=== PATIENT | female | born 1990 | race Caucasian/White ===

== ENCOUNTER 2019-10-12 17:01 | Emergency (ER) | payer MEDICAID ==
[~2019-10-12] VITALS: Ht 167.6 cm; Wt 52.0 kg
[2019-10-12] MEDS ORDERED: TETANUS AND DIPHTHERIA TOX/PF 0.5 ML VIAL. VAX IM ONE (17:45)
[2019-10-12] MEDS ORDERED: DIPH,PERTUSS(ACELL),TET VAC/PF 0.5 ML SYRINGE. VAX IM ONE (17:51)
--- NOTE | 2019-10-12 17:59 | PHYS DOC ---
Adult General Chief Complaint Chief Complaint: SUICIDAL IDEATION HPI HPI Patient is a 29 year old left handed female with history of previous mental hospitalization for suicidal ideation who presents via EMS with complaining of suicidal ideation. Patient states she had a miscarriage with D&C yesterday and was upset about the significant other and cut her right wrist with suicidal ideation. Patient denies homicidal ideation and hallucination. Patient was hospitalized in mental hospital 1 month ago with the same problem. (AVRIL MARTINEZ MD) Review of Systems Review of Systems Constitutional: Denies fever or chills [] Eyes: Denies change in visual acuity, redness, or eye pain [] HENT: Denies nasal congestion or sore throat [] Respiratory: Denies cough or shortness of breath [] Cardiovascular: No additional information not addressed in HPI [] GI: Denies abdominal pain, nausea, vomiting, bloody stools or diarrhea [] : Denies dysuria or hematuria [] Musculoskeletal: Denies back pain or joint pain [] Integument: Denies rash or skin lesions [] Neurologic: Denies headache, focal weakness or sensory changes [] Endocrine: Denies polyuria or polydipsia [] All other systems were reviewed and found to be within normal limits, except as documented in this note. (AVRIL MARTINEZ MD) Current Medications Current Medications Current Medications Medications (Trade) Dose Ordered Sig/Emily Start Time Stop Time Status Last Admin Dose Admin Tetanus/ Diphtheria Toxoids Adsorbed (Tenivac Vial) 0.5 ml ONCE ONCE 10/12/19 17:45 10/12/19 17:46 UNV (AVRIL MARTINEZ MD) Physical Exam Physical Exam Constitutional: Well developed, well nourished, mild distress, non-toxic appearance. [] HENT: Normocephalic, atraumatic. Eyes: PERRLA, EOMI, conjunctiva normal, no discharge. [] Neck: Normal range of motion, no tenderness, supple, no stridor. [] Cardiovascular:Heart rate regular rhythm, no murmur [] Lungs & Thorax: Bilateral breath sounds clear to auscultation [] Abdomen: Bowel sounds normal, soft, no tenderness, no masses, no pulsatile mass es. [] Skin: Warm, dry, no erythema, no rash. [] depressed Back: No tenderness, no CVA tenderness. [] Extremities: Several transverse laceration of right forearm in volar side and some of them with exposed fat tissue, no tenderness, no cyanosis, no clubbing, ROM intact, no edema. [] Neurologic: Alert and oriented X 3, no focal deficits noted. [] Psychologic: Affect normal, judgement normal, mood suicidal. (AVRIL MARTINEZ MD) EKG EKG [] (AVRIL MARTINEZ MD) Radiology/Procedures Radiology/Procedures [] (AVRIL MARTINEZ MD) Course & Med Decision Making Course & Med Decision Making Pertinent Labs are pending. Evaluation of patient in ER showed 29-year-old female patient with suicidal ideation and several right forearm laceration to some of the needs repair. Labs is pending.Sign out given to at 1800 for further evaluation and final disposition. Discussed current findings and plan with patient and family, who acknowledge understanding and agreement. (AVRIL MARTINEZ MD) Course & Med Decision Making The patient's psychiatric screener has determined that the patient can be discharged with a safety plan. She will have her stitches out in 7 days. She is stable for discharge at this time. (VIPIN GUY DO) Dragon Disclaimer Dragon Disclaimer This electronic medical record was generated, in whole or in part, using a voice recognition dictation system. (AVRIL MARTINEZ MD) Laceration Repair Lac Repair Indication: 3 linear lacerations each 3 cm in length on the left forearm that wo uld benefit from loose suturing. Patient has several other self-inflicted cuts that do not need suture. Procedure: I obtained verbal consent from the patient for suture repair of 3 of her wounds. Wounds were cleaned with saline under pressure. No foreign bodies were found. I anesthetized the wounds with 4 mL of 1% lidocaine with epinephrine. Good anesthesia was achieved, I placed 2 3-0 sutures in an interrupted fashion and each of the 3 wounds. This provided loose approximation for better healing. Bleeding was controlled. Clean dry dressing was applied. Total repaired wound length: 3 lacerations each 3 cm in length Other Items: None The patient tolerated the procedure well Complications: 3 lacerations (VIPIN GUY DO) Departure Departure: Impression: Primary Impression: Suicidal ideation Additional Impressions: Self-mutilation Forearm laceration Disposition: 01 HOME, SELF-CARE Condition: STABLE Patient Instructions: Laceration Care, Adult, [id number], Suicidal Feelings, How to Help Yourself Problem Qualifiers Additional Impressions: Forearm laceration Encounter type: sequela Laterality: right Qualified Codes: S51.811S - Laceration without foreign body of right forearm, sequela AVRIL MARTINEZ MD Oct 12, 2019 17:59 VIPIN GUY DO Oct 12, 2019 21:11
[2019-10-12 18:10] VITALS: BP 123/72
[2019-10-12 18:19] LABS: BASO # 0.1 x10^3/uL (0.0-0.2); BASO % 1 % (0-3); EOS # 0.1 x10^3/uL (0.0-0.7); EOS % 1 % (0-3); HEMATOCRIT 32.7 % (36.0-47.0); HEMOGLOBIN 10.9 g/dL (12.0-15.5); LYMPH # 3.1 x10^3/uL (1.0-4.8); LYMPH % 24 % (24-48); MEAN CORPUSCULAR HEMOGLOBIN 32 pg (25-35); MEAN CORPUSCULAR HGB CONC 33 g/dL (31-37); MEAN CORPUSCULAR VOLUME 96 fL (79-100); MONO # 0.9 x10^3/uL (0.0-1.1); MONO % 7 % (0-9); NEUT # 8.5 x10^3uL (1.8-7.7); NEUT % 67 % (31-73); PLATELET COUNT 319 x10^3/uL (140-400); RED BLOOD COUNT 3.42 x10^6/uL (3.50-5.40); WHITE BLOOD COUNT 12.7 x10^3/uL (4.0-11.0)
[2019-10-12 18:29] LABS: CALCIUM 8.2 mg/dL (8.5-10.1); CREATININE 0.9 mg/dL (0.6-1.0); POTASSIUM 3.2 mmol/L (3.5-5.1)
[2019-10-12 18:35] LABS: ALBUMIN 3.4 g/dL (3.4-5.0); DIRECT BILIRUBIN 0.1 mg/dL (0.0-0.2); TOTAL BILIRUBIN 0.2 mg/dL (0.2-1.0); TOTAL PROTEIN 6.2 g/dL (6.4-8.2)
[2019-10-12 22:01] LABS: BARBITURATES NEG (NEG); BENZODIAZEPINES POS (NEG); CANNABINOIDS NEG (NEG); COCAINE NEG (NEG); METHADONE NEG (NEG); OPIATES NEG (NEG); PHENCYCLIDINE NEG (NEG)
[2019-10-12 22:02] LABS: AMPHETAMINE/METHAMPHETAMINE NEG (NEG)
[2019-10-12 22:11] LABS: BILIRUBIN,URINE NEG (NEG); CLARITY,URINE HAZY; COLOR,URINE AMBER; GLUCOSE,URINE NEG (NEG)
[2019-10-12 22:12] LABS: BACTERIA,URINE FEW /HPF (0-FEW); NITRITE,URINE NEG (NEG); SQUAMOUS EPITHELIAL CELL,UR MOD /LPF; UROBILINOGEN,URINE 0.2 mg/dL (0.2 mg/dL)
[2019-10-13] MEDS ORDERED: NICOTINE 21MG PATCH. TD ONE ×2 (03:58→04:30)
== END 2019-10-13 03:58 | disposition home or self-care (01) ==
LOC: ER 17:01
DX: S51.811A Laceration without foreign body of right forearm, initial encounter (principal); Z91.5 Personal history of self-harm; X78.8XXA Intentional self-harm by other sharp object, initial encounter; Y93.89 Activity, other specified; Y92.89 Other specified places as the place of occurrence of the external cause; Y99.8 Other external cause status
CPT/HCPCS: 12004; 36415; 80048; 80076; 80307; 81001; 81025; 83735; 85025; 90471; 90714; 99283; G0480